=== PATIENT | female | born 1935 | race Caucasian/White ===

== ENCOUNTER → 2016-11-04 | Outpatient (CLI) | payer MEDICARE ==
[2016-11-05 12:12] LABS: CHOLESTEROL 173.99 mg/dL (0-200); Direct HDL 44 mg/dL (>40); TRIGLYCERIDES 151 mg/dL (<150)
[2016-11-05 12:23] LABS: DIRECT LDL 96 mg/dL (<100)
[2016-11-05 12:26] LABS: VLDL CHOLESTEROL 30.2 mg/dL (10-31)
== END ==
LOC: OD 12:59
PROVIDERS: ATTEND Internal Medicine
DX: E78.5 Hyperlipidemia, unspecified (principal); E53.8 Deficiency of other specified B group vitamins; D51.1 Vitamin B12 deficiency anemia due to selective vitamin B12 malabsorption with proteinuria; E60 Dietary zinc deficiency
CPT/HCPCS: 36415; 80061

== ENCOUNTER → 2016-11-05 | Outpatient (CLI) | payer MEDICARE ==
[2016-11-05 15:17] LABS: IRON 110.2 ug/dL (37-170)
== END ==
LOC: OD 14:00
PROVIDERS: ATTEND Specialist
DX: D51.1 Vitamin B12 deficiency anemia due to selective vitamin B12 malabsorption with proteinuria (principal); E60 Dietary zinc deficiency
CPT/HCPCS: 36415; 82607; 83540; 84630

== ENCOUNTER → 2016-11-27 | Outpatient (CLI) | payer MEDICARE | LOC: OD 14:55 | PROVIDERS: ATTEND Family Medicine Geriatric Medicine | DX: M25.551 Pain in right hip (principal); M19.90 Unspecified osteoarthritis, unspecified site ==

== ENCOUNTER → 2016-12-05 | Outpatient (CLI) | payer MEDICARE | LOC: RAD 10:23 → ER 10:23 → EDSTATUS 10:43 | PROVIDERS: ATTEND Pathology Anatomic Pathology & Clinical Pathology | DX: J40 Bronchitis, not specified as acute or chronic (principal); R05 Cough | CPT/HCPCS: 70220; 71020 ==

== ENCOUNTER → 2016-12-23 | Outpatient (CLI) | payer MEDICARE | LOC: OD 12:39 | PROVIDERS: ATTEND Family Medicine Geriatric Medicine | DX: M54.2 Cervicalgia (principal); M43.02 Spondylolysis, cervical region | CPT/HCPCS: 72050 ==

== ENCOUNTER → 2016-12-26 | Outpatient (CLI) | payer MEDICARE ==
[2016-12-26 09:40] LABS: ABSOLUTE EOSINOPHILS # (AUTO) 0.2 10^3/uL (0.0-0.6); ABSOLUTE LYMPHOCYTES (AUTO) 1.1 10^3/uL (0.5-4.7); ABSOLUTE MONOCYTES (AUTO) 0.3 10^3/uL (0.1-1.4); ABSOLUTE NEUT (AUTO) 1.8 10^3/uL (1.7-8.2); HEMATOCRIT 40.2 % (36.0-47.0); HEMOGLOBIN 13.5 g/dL (12.0-15.5); HGB HCT DIFFERENCE 0.3; MEAN CORPUSCULAR HEMOGLOBIN 31.9 pg (27.0-33.4); MEAN CORPUSCULAR HGB CONC 33.5 g/dL (32.0-36.0); MEAN CORPUSCULAR VOLUME 95 fl (80-97); MONOCYTES % (AUTO) 8.8 % (3-13); RED BLOOD COUNT 4.23 10^6/uL (3.72-5.28); RED CELL DISTRIBUTION WIDTH 14.8 % (11.5-14.0); SEGMENTED NEUTROPHILS % (AUTO) 53.2 % (42-78); WHITE BLOOD COUNT 3.4 10^3/uL (4.0-10.5)
[2016-12-26 10:05] LABS: ALANINE AMINOTRANSFERASE 40 U/L (9-52); ALKALINE PHOSPHATASE 73 U/L (38-126); ANION GAP 10 (5-19); ASPARTATE AMINO TRANSFERASE 33 U/L (14-36); BILIRUBIN,DIRECT 0.2 mg/dL (0.0-0.4); BILIRUBIN,TOTAL 0.6 mg/dL (0.2-1.3); BLOOD UREA NITROGEN 12 mg/dL (7-20); CALCIUM 10.4 mg/dL (8.4-10.2); CARBON DIOXIDE 28 mmol/L (22-30); CHLORIDE 105 mmol/L (98-107); CREATININE RESULT 0.86 mg/dL (0.52-1.25); GLUCOSE 102 mg/dL (75-110); MAGNESIUM 1.8 mg/dL (1.6-2.3); POTASSIUM 4.3 mmol/L (3.6-5.0); TOTAL PROTEIN 6.6 g/dL (6.3-8.2)
[2016-12-26 10:41] LABS: ANISOCYTOSIS SLIGHT; POIKILOCYTOSIS SLIGHT
[2016-12-26 10:42] LABS: PLATELET CLUMPS PRESENT
== END ==
LOC: OD 08:15
PROVIDERS: ATTEND Family Medicine Geriatric Medicine
DX: I10 Essential (primary) hypertension (principal); E78.5 Hyperlipidemia, unspecified; I25.10 Atherosclerotic heart disease of native coronary artery without angina pectoris; M25.551 Pain in right hip; Z79.899 Other long term (current) drug therapy
CPT/HCPCS: 36415; 80053; 83735; 84443; 85025

== ENCOUNTER → 2017-03-13 | Outpatient (CLI) | payer MEDICARE ==
--- NOTE | 2017-03-13 18:06 | RADIOLOGY REPORT (SQ) ---
EXAM DESCRIPTION: CT LT UPPER EXTREMITY WITHOUT COMPLETED DATE/TIME: 03/13/2017 1:22 pm REASON FOR STUDY: OTHER SPECIFIED INJURIES OF L WRIST, HAND AND FINGERS S69.82XA OTH INJURIES OF LE FT WRIST, HAND AND FINGER(S), INI COMPARISON: None. TECHNIQUE: Axial imaging performed through the left wrist with reformatted oblique coronal and obliq ue sagittal imaging windowed for bone and soft tissues. All CT scanners at this facility use dose modulation, iterative reconstruction, and/or weight based d osing when appropriate to reduce radiation dose to as low as reasonably achievable (ALARA). [facility]: Dose Right [facility]: CareDose [facility]: Dose Right [facility]: Teradose 4D [facility]: Smart [employer] RADIATION DOSE: Up-to-date CT equipment and radiation dose reduction techniques were employed. CTDIv ol: 32.2 mGy. DLP: 728 mGy-cm. mGy. LIMITATIONS: The patient was unable to lay on her belly or her side for the imaging. The left wrist was placed on the patient belly, and scanning in this position was performed. Aluminu m splint was still present. This along with patient's body habitus and beam scatter cause significan t artifact on the images. Fine bony detail to exclude carpal bone fracture is lost. FINDINGS: Nondiagnostic study for fracture. Patient's body habitus, inability to cooperate with pos itioning with her arm over her head. Patient was scanned with air left wrist over her belly. Due to a combination of body habitus, beam scatter, and aluminum splint, we were unable to obtain diagnosti c quality images of the left wrist to evaluate for fracture. IMPRESSION: Nondiagnostic study COMMENT: This report was called to Dr. Esteban, 1600 hours 03/13/2017 TECHNICAL DOCUMENTATION: JOB ID: [id number] Quality ID # [id number]: Final reports with documentation of one or more dose reduction techniques (e.g., Au tomated exposure control, adjustment of the mA and/or kV according to patient size, use of iterative reconstruction technique) 2010 [employer]- All Rights Reserved
== END ==
LOC: RAD 13:01
PROVIDERS: ATTEND Family Medicine
DX: S69.82XA Other specified injuries of left wrist, hand and finger(s), initial encounter (principal); X58.XXXA Exposure to other specified factors, initial encounter; Y93.9 Activity, unspecified; Y92.9 Unspecified place or not applicable

== ENCOUNTER → 2017-03-27 | Outpatient (CLI) | payer MEDICARE ==
--- NOTE | 2017-03-28 08:58 | RADIOLOGY REPORT (SQ) ---
EXAM DESCRIPTION: NM 3 PHASE BONE SCAN COMPLETED DATE/TIME: 03/27/2017 3:51 pm REASON FOR STUDY: OTHER SPECIFIED INJURIES OF UNSPEC WRIST, HAND AND FINGERS (S69.80XA) M54.12 RADI CULOPATHY, CERVICAL REGION COMPARISON: Outside plain films of the left hand. RADIONUCLIDE AND DOSE: 21.7 millicuries Tc99m MDP. The route of agent administration: Intravenous. ADDITIONAL DRUGS AND DOSES: None. TECHNIQUE: Following injection of the radiopharmaceutical, serial blood flow images acquired. Equil ibrium blood pool images then acquired. Routine delayed images at 3 hours acquired of the areas of c linical concern with additional focused images as needed. AREA OF INTEREST: Left hand LIMITATIONS: None. FINDINGS: VASCULAR FLOW IMAGES: No asymmetry or focal areas of hyperemia. BLOOD POOL IMAGES: No asymmetry or focal areas of soft-tissue hyper-perfusion. BONES: There is focal increased activity at the level of the 1st MCP joint, the DIP joint of the 2nd digit KIDNEYS: And at the level of the carpal bones medially which correlate with degenerative changes on t he basis of the plain films. There is similar increase tracer activity at the level of the 1st MCP j oint of the right hand. No other significant skeletal abnormalities were identified. OTHER: No other significant finding. IMPRESSION: Findings consistent with degenerative changes as noted above. No other significant bony abnormalities were identified. COMMENT: RS [id number]: Current bone scan is compared with any available plain radiographs, prior bone scans, and CT/MRI. TECHNICAL DOCUMENTATION: JOB ID: [id number] [employer]- All Rights Reserved
== END ==
LOC: RAD 11:12
PROVIDERS: ATTEND Family Medicine
DX: S69.92XA Unspecified injury of left wrist, hand and finger(s), initial encounter (principal); X58.XXXA Exposure to other specified factors, initial encounter; M19.042 Primary osteoarthritis, left hand
CPT/HCPCS: 78315; A9561; Q9969

== ENCOUNTER → 2017-05-28 | Outpatient (CLI) | payer MEDICARE ==
[2017-05-28 09:03] LABS: ALANINE AMINOTRANSFERASE 32 U/L (9-52); ANION GAP 12 (5-19); ASPARTATE AMINO TRANSFERASE 27 U/L (14-36); BLOOD UREA NITROGEN 11 mg/dL (7-20); CALCIUM 10.6 mg/dL (8.4-10.2); CARBON DIOXIDE 27 mmol/L (22-30); CHLORIDE 104 mmol/L (98-107); CHOLESTEROL 196.96 mg/dL (0-200); CREATININE RESULT 0.89 mg/dL (0.52-1.25); Direct HDL 61 mg/dL (>40); GLUCOSE 96 mg/dL (75-110); POTASSIUM 4.4 mmol/L (3.6-5.0); SODIUM 142.7 mmol/L (137-145); TRIGLYCERIDES 125 mg/dL (<150)
[2017-05-28 09:13] LABS: DIRECT LDL 107 mg/dL (<100)
== END ==
LOC: OD 07:50
PROVIDERS: ATTEND Family Medicine Geriatric Medicine
DX: I10 Essential (primary) hypertension (principal); Z79.899 Other long term (current) drug therapy; E83.52 Hypercalcemia; E03.9 Hypothyroidism, unspecified; M47.12 Other spondylosis with myelopathy, cervical region
CPT/HCPCS: 36415; 80048; 80061; 82607; 83970; 84443; 84450; 84460

== ENCOUNTER → 2018-04-06 | Outpatient (CLI) | payer MEDICARE ==
--- NOTE | 2018-04-06 10:20 | RADIOLOGY REPORT (SQ) ---
EXAM DESCRIPTION: CT HEAD WITHOUT COMPLETED DATE/TIME: 04/06/2018 9:47 am REASON FOR STUDY: HALLUCINATION, UNSPECIFIED R44.3 HALLUCINATIONS, UNSPECIFIED F03.90 UNSPECIFIED DEMENTIA WITHOUT BEHAVIORAL DISTURBANCE COMPARISON: None. TECHNIQUE: Axial images acquired through the brain without intravenous contrast. Images reviewed wi th bone, brain and subdural windows. Additional sagittal and coronal reconstructions were generated. Images stored on PACS. All CT scanners at this facility use dose modulation, iterative reconstruction, and/or weight based d osing when appropriate to reduce radiation dose to as low as reasonably achievable (ALARA). [facility]: Dose Right [facility]: CareDose [facility]: Dose Right [facility]: Teradose 4D [facility]: [employer] RADIATION DOSE: CT Rad equipment meets quality standard of care and radiation dose reduction techniq ues were employed. CTDIvol: 48.6 mGy. DLP: 929 mGy-cm.mGy. LIMITATIONS: None. FINDINGS: VENTRICLES: Prominent. CEREBRUM: No masses. No hemorrhage. No midline shift. Areas of low density in the white matter mos t likely due to chronic micro-vascular ischemic change. No evidence for acute infarction. CEREBELLUM: No masses. No hemorrhage. No alteration of density. No evidence for acute infarction. EXTRAAXIAL SPACES: Age-related involutional change. No fluid collections. No masses. ORBITS AND GLOBE: No intra- or extraconal masses. Normal contour of globe without masses. CALVARIUM: No fracture. PARANASAL SINUSES: No fluid or mucosal thickening. SOFT TISSUES: No mass or hematoma. OTHER: No other significant finding. IMPRESSION: CHRONIC CHANGES OF ATROPHY AND MICROVASCULAR ISCHEMIA. NO ACUTE PROCESS. EVIDENCE OF ACUTE STROKE: NO. TECHNICAL DOCUMENTATION: JOB ID: [id number] Quality ID # [id number]: Final reports with documentation of one or more dose reduction techniques (e.g., Au tomated exposure control, adjustment of the mA and/or kV according to patient size, use of iterative reconstruction technique) 2010 [employer]- All Rights Reserved Reading location - IP/workstation name: AC
== END ==
LOC: RAD 09:28
PROVIDERS: ATTEND Family Medicine
DX: R44.3 Hallucinations, unspecified (principal); F03.90 Unspecified dementia, unspecified severity, without behavioral disturbance, psychotic disturbance, mood disturbance, and anxiety; I67.82 Cerebral ischemia; G31.9 Degenerative disease of nervous system, unspecified
CPT/HCPCS: 70450

== ENCOUNTER 2018-10-11 10:38 | Emergency (ER) | payer MEDICARE ==
--- NOTE | 2018-10-11 11:12 | ER Document Report ---
ED Medical Screen (RME) - General Chief Complaint: Psych Problem Stated Complaint: BACK PAIN Time Seen by Provider: 10/11/18 11:09 Primary Care Provider: NORAH JOHNSON MD [Primary Care Provider] - Follow up as needed TRAVEL OUTSIDE OF THE [place] IN LAST 30 DAYS: No - HPI Notes: 10/11/18 11:[address] Johnson cardiac Dr. Johnson coming in for increase auditory hallucinations and confusion increased back pain no fevers concern for urinary tract infection. - Related Data Allergies/Adverse Reactions: clopidogrel bisulfate [From Plavix] Allergy (Severe, Verified 10/11/18 10:46) Liver damage fluvastatin sodium [From Lescol XL] Allergy (Severe, Verified 10/11/18 10:46) Penicillins Allergy (Mild, Verified 10/11/18 10:46) Generalized rash propoxyphene HCl [From Darvon] Allergy (Mild, Verified 10/11/18 10:46) Past Medical History - Past Medical History Cardiac Medical History: Reports: Hx Coronary Artery Disease, Hx Heart Attack, Hx Hypertension Pulmonary Medical History: Reports: Hx COPD Denies: Hx Asthma, Hx Bronchitis, Hx Pneumonia Neurological Medical History: Denies: Hx Cerebrovascular Accident, Hx Seizures Musculoskeltal Medical History: Reports Hx Arthritis Past Surgical History: Reports: Hx Hysterectomy, Hx Pacemaker - Immunizations Hx Diphtheria, Pertussis, Tetanus Vaccination: Yes Physical Exam - Vital signs Vitals: Temp Pulse Resp BP 97.4 F 63 17 132/66 H 10/11/18 10:47 10/11/18 10:47 10/11/18 10:47 10/11/18 10:47 - Respiratory Respiratory status: No respiratory distress Chest status: Nontender Breath sounds: Normal Chest palpation: Normal Course - Vital Signs Vital signs: Temp Pulse Resp BP Pulse Ox 97.4 F 63 17 132/66 H 10/11/18 10:47 10/11/18 10:47 10/11/18 10:47 10/11/18 10:47 Doctor's Discharge - Discharge Referrals: NORAH JOHNSON MD [Primary Care Provider] - Follow up as needed
--- NOTE | 2018-10-11 11:54 | ER Document Report ---
ED General - General Chief Complaint: Psych Problem Stated Complaint: BACK PAIN Time Seen by Provider: 10/11/18 11:09 Primary Care Provider: NORAH JOHNSON MD [Primary Care Provider] - Follow up in 3-5 days TRAVEL OUTSIDE OF THE [place] IN LAST 30 DAYS: No - HPI Notes: Patient is an 83-year-old female with a history of depression, hypertension, paroxysmal atrial fibrillation (on Eliquis), pacemaker who presents to the emergency department with daughter complaining of visual and auditory hallucinations as well as increased urinary frequency. Daughter states that she has had some visual and auditory hallucinations since her a year and a half ago. She is being seen by [facility] and on welbutrin/seroquel. She does not have any SI/HI. Daughter states that this is the first time that she is actually started listening to the voice in her head and started doing what they asked of her. Patient states that a voice has been causing her this morning to collect her things, go outside, walking on the road as an example. She also states that another voice told her that people on motorcycles in groups of 3 were going to shoot her and very her body so that it cannot be found. Daughter states that she is also had some flights of thought, but normally will continuously talk to someone is willing to listen. That behavior is relatively normal otherwise. She is still eating and drinking without difficulty. She is having normal bowel movements, but states that she may be constipated. No other concerns or complaints. Her clinic wanted her evaluated for possible UTI. Daughter states that she has had work-ups in the past with unremarkable blood work and CT. Pt has had back pain that has already been eval'd by her PCM. Denies any headache, fever, head injury, neck pain, changes in vision/speech/hearing, URI, sore throat, chest pain, palpitations, syncope, cough, shortness of breath, wheeze, dyspnea, nausea/vomiting/diarrhea, loss of control of bowel or bladder, numbness/tingling, saddle anesthesia, muscle paralysis/weakness, or rash. - Related Data Allergies/Adverse Reactions: clopidogrel bisulfate [From Plavix] Allergy (Severe, Verified 10/11/18 10:46) Liver damage fluvastatin sodium [From Lescol XL] Allergy (Severe, Verified 10/11/18 10:46) Penicillins Allergy (Mild, Verified 10/11/18 10:46) Generalized rash propoxyphene HCl [From Darvon] Allergy (Mild, Verified 10/11/18 10:46) Past Medical History - Social History Smoking Status: Never Smoker Family History: Reviewed & Not Pertinent Patient has suicidal ideation: No Patient has homicidal ideation: No - Past Medical History Cardiac Medical History: Reports: Hx Coronary Artery Disease, Hx Heart Attack, Hx Hypertension Pulmonary Medical History: Reports: Hx COPD Denies: Hx Asthma, Hx Bronchitis, Hx Pneumonia Neurological Medical History: Denies: Hx Cerebrovascular Accident, Hx Seizures Renal/ Medical History: Denies: Hx Peritoneal Dialysis Musculoskeletal Medical History: Reports Hx Arthritis Past Surgical History: Reports: Hx Hysterectomy, Hx Pacemaker - Immunizations Hx Diphtheria, Pertussis, Tetanus Vaccination: Yes Hx Pneumococcal Vaccination: 06/08/10 Review of Systems - Review of Systems -: Yes All other systems reviewed and negative Physical Exam - Vital signs Vitals: Temp Pulse Resp BP 97.4 F 63 17 132/66 H 10/11/18 10:47 10/11/18 10:47 10/11/18 10:47 10/11/18 10:47 - Notes Notes: PHYSICAL EXAMINATION: GENERAL: Well-appearing, well-nourished and in no acute distress. A&Ox3. Answers questions appropriately. Will talk non-stop until interrupted with some flights of thought that not even her daughters know what she is talking about. HEAD: Atraumatic, normocephalic. EYES: Pupils equal round and reactive to light, extraocular movements intact, sclera anicteric, conjunctiva are normal. ENT: EAC clear b/l. TM's intact b/l without erythema, fluid, or perforation. Nares patent and without discharge. oropharynx clear without exudates. No tonsilar hypertrophy or erythema. Moist mucous membranes. No sinus tenderness. NECK: Normal range of motion, supple without lymphadenopathy LUNGS: Breath sounds clear to auscultation bilaterally and equal. No wheezes rales or rhonchi. HEART: Regular rate and rhythm without murmurs, rubs, gallops. ABDOMEN: Soft, nontender, nondistended abdomen. No guarding, no rebound. No masses appreciated. Normal bowel sounds present. No CVA tenderness bilaterally. Musculoskeletal: FROM to passive/active. Strength 5+/5. Back: no vertebral point tenderness. + mild tenderness rt L-paraspinal mm. SLR neg. No foot drop. Extremities: No cyanosis, clubbing, or edema b/l. Peripheral pulses 2+. Capillary refill less than 3 seconds. NEUROLOGICAL: Cranial nerves grossly intact. NIH 0. Normal speech, normal gait. Normal sensory, motor exams PSYCH: talkative, flights of thought at times SKIN: Warm, Dry, normal turgor, no rashes or lesions noted. Course - Re-evaluation Re-evalutation: 10/11/18 11:54 We will check basic labs and a urine. We will have her eval'd by our Psychology team. This appears to be acute on chronic hallucinations w/o SI/HI. 10/11/18 15:04 Patient is an afebrile, well-hydrated, 83-year-old female who presents the emergency department with what appears to be dementia related symptoms. Patient has had ongoing visual and auditory hallucinations over the last couple years. Vitals are acceptable without significant tachycardia, tachypnea, or hypoxia. PE is otherwise unremarkable. Lab work including urinalysis was unremarkable for any acute pathology. Our psychology team has made recommendations on medication changes which the family will be trying. No further labs or imaging warranted at this time. Patient is nontoxic-appearing and is tolerating p.o. without difficulty. Home safety precautions have been reviewed. Low suspicion for any acute intracranial pathology, sepsis, meningitis, severe dehydration, respiratory compromise, or other systemic emergent condition at this time. Daughter and patient aware that condition can change from initial presentation and they need to monitor symptoms closely and seek medical attention with any acute changes. Recheck with your PCM in 3-5 days. Schedule appointment with your psychiatrist. Return to the ED with any other worsening/concerning symptoms as reviewed. Patient and family in agreement. - Vital Signs Vital signs: Temp Pulse Resp BP Pulse Ox 97.4 F 63 17 132/66 H 10/11/18 10:47 10/11/18 10:47 10/11/18 10:47 10/11/18 10:47 - Laboratory Result Diagrams: 10/11/18 12:05 10/11/18 12:05 Laboratory results interpreted by me: 10/11/18 10/11/18 12:05 12:05 RDW 14.7 H Glucose 112 H Calcium 10.4 H Salicylates < 1.0 L Acetaminophen < 10 L Discharge - Discharge Clinical Impression: Hallucinations Unspecified dementia without behavioral disturbance Qualifiers: Dementia type: unspecified type Qualified Code(s): F03.90 - Unspecified dementia without behavioral disturbance Condition: Stable Disposition: HOME, SELF-CARE Additional Instructions: Maintain adequate fluid and food intake Take home medications as directed Healthy diet Monitor blood pressure daily and keep a log Monitor symptoms for any acute changes Recheck with your PCM in 3-5 days Consider a follow-up with neurology Return to the ED with any worsening symptoms and/or development of fever, headache, chest pain, palpitations, syncope, shortness of breath, trouble breathing, abdominal pain, n/v/d, blood in stool/urine, loss of control of bowel/bladder, urinary retention, muscle weakness/paralysis, numbness/tingling, or other worsening symptoms that are concerning to you. Medication recommendations per [facility]'s contracted psychiatrist Dr. Sun OTOOLE are as follows Please discontinue home medications of Seroquel and Zoloft please start Depakote 250 mg twice daily BuSpar 5 mg twice daily Prescriptions: Buspirone HCl [Buspar 5 mg Tablet] 1 tab PO BID #14 tab Divalproex Sodium [Depakote] 250 mg PO BID #14 tablet.dr Forms: Elevated Blood Pressure Referrals: NORAH JOHNSON MD [Primary Care Provider] - Follow up in 3-5 days
[2018-10-11 12:03] LABS: APPEARANCE,URINE CLEAR; BILIRUBIN,URINE NEGATIVE (NEGATIVE); COLOR,URINE YELLOW; GLUCOSE, URINE NEGATIVE (NEGATIVE); KETONES,URINE NEGATIVE (NEGATIVE); LEUKOCYTE ESTERASE,URINE NEGATIVE (NEGATIVE); NITRITE,URINE NEGATIVE (NEGATIVE); PROTEIN,URINE NEGATIVE (NEGATIVE); URINE SPECIFIC GRAVITY 1.006; UROBILINOGEN,URINE NEGATIVE mg/dL (<2.0)
[2018-10-11 12:14] LABS: URINE AMPHETAMINES SCREEN NEGATIVE; URINE BARBITURATES SCREEN NEGATIVE; URINE BENZODIAZEPINES SCREEN NEGATIVE; URINE COCAINE SCREEN NEGATIVE; URINE MARIJUANA (THC) SCREEN NEGATIVE; URINE METHADONE SCREEN NEGATIVE; URINE PHENCYCLIDINE SCREEN NEGATIVE
[2018-10-11 12:22] LABS: ABSOLUTE EOSINOPHILS # (AUTO) 0.1 10^3/uL (0.0-0.6); ABSOLUTE MONOCYTES (AUTO) 0.4 10^3/uL (0.1-1.4); ABSOLUTE NEUT (AUTO) 3.2 10^3/uL (1.7-8.2); BASOPHILS % (AUTO) 0.5 % (0-2); EOSINOPHILS % (AUTO) 1.2 % (0-6); HEMATOCRIT 41.1 % (36.0-47.0); HEMOGLOBIN 14.1 g/dL (12.0-15.5); LYMPHOCYTES % (AUTO) 20.9 % (13-45); MEAN CORPUSCULAR HEMOGLOBIN 31.8 pg (27.0-33.4); MEAN CORPUSCULAR HGB CONC 34.2 g/dL (32.0-36.0); MEAN CORPUSCULAR VOLUME 93 fl (80-97); MONOCYTES % (AUTO) 8.1 % (3-13); PLATELET COUNT 173 10^3/uL (150-450); RED BLOOD COUNT 4.42 10^6/uL (3.72-5.28); RED CELL DISTRIBUTION WIDTH 14.7 % (11.5-14.0); SEGMENTED NEUTROPHILS % (AUTO) 69.3 % (42-78); TOTAL CELLS COUNTED % (AUTO) 100 %; WHITE BLOOD COUNT 4.6 10^3/uL (4.0-10.5)
[2018-10-11 12:46] LABS: ALANINE AMINOTRANSFERASE 33 U/L (9-52); ALBUMIN 4.3 g/dL (3.5-5.0); ALKALINE PHOSPHATASE 87 U/L (38-126); ANION GAP 9 (5-19); ASPARTATE AMINO TRANSFERASE 27 U/L (14-36); BILIRUBIN,DIRECT 0.2 mg/dL (0.0-0.4); BILIRUBIN,TOTAL 0.4 mg/dL (0.2-1.3); BLOOD UREA NITROGEN 9 mg/dL (7-20); CALCIUM 10.4 mg/dL (8.4-10.2); CARBON DIOXIDE 26 mmol/L (22-30); CHLORIDE 105 mmol/L (98-107); GLUCOSE 112 mg/dL (75-110); POTASSIUM 4.1 mmol/L (3.6-5.0); SODIUM 139.6 mmol/L (137-145); TOTAL PROTEIN 6.7 g/dL (6.3-8.2)
[2018-10-11 12:48] LABS: ACETAMINOPHEN < 10 ug/mL (10-30); ALCOHOL < 10 mg/dL (NONE DETECTED); SALICYLATE < 1.0 mg/dL (2.0-20.0)
[2018-10-11 13:44] LABS: FREE T3 3.27 pg/mL (2.77-5.27); FREE T4 (FREE THYROXINE) 1.76 ng/dL (0.78-2.19)
[2018-10-11 13:58] LABS: THYROID STIMULATING HORMONE 0.98 uIU/mL (0.47-4.68)
--- NOTE | 2018-10-11 14:00 | PSYCHOLOGICAL NOTE ---
Psych Note - Psych Note Date seen by psych provider: 10/11/18 Time seen by psych provider: 12:28 Psych Note: Reason for Consult: hallucinations Patient's family (son, daughter in law, and granddaughter whom has POA) are a bedside per patient's request Patient is an 83-year-old female with a history of depression, hypertension, paroxysmal atrial fibrillation (on Eliquis), pacemaker who presents to the emergency department with daughter complaining of visual and auditory hallucinations as well as increased urinary frequency. Patient is alert and orientated to person, place, time and circumstance. Mood is euthymic with congruent affect. Patient denies suicidal homicidal ideations. Patient discloses having episodes of both visual and auditory hallucinations. Delusions are absent behaviors congruent with an intact reality based presentation i.e. organized and linear thought process. Eye contact is well- maintained. Conversational speech is loud as patient has hearing loss. Intellectual abilities appear to be within the average range. Attention and concentration are poor. Insight, judgment, impulse control are poor. Review conducted: Patient's primary care provider Dr. Lindsey diagnosed patient with dementia. Patient had head CT on 08/07/2018 which indicated chronic changes of atrophy and microvascular ischemia. Medication recommendations per [facility]'s contracted psychiatrist Dr. Sun OTOOLE are as follows Please discontinue home medications of Seroquel and Zoloft please start Depakote 250 mg twice daily BuSpar 5 mg twice daily 799.59 (R41.9)unspecified neurocognitive disorder; probable Impression\plan: Patient is cleared from acute psychiatric services. Patient has formal diagnosis of dementia per history indicated in patient's chart. Medication recommendations have been provided. Clinician conducted psychoeducation with patient's family to discuss options on how to continue increasing patient's safety at home. Clinician provided resource information on support groups. Dr. Gifford was consulted and the care management this patient; attending physicians agreement with recommendations and disposition.
[2018-10-11 15:27] VITALS: BP 138/65
== END 2018-10-11 15:27 | disposition home or self-care (01) ==
LOC: ER 10:38
DX: R44.3 Hallucinations, unspecified (principal); F03.90 Unspecified dementia, unspecified severity, without behavioral disturbance, psychotic disturbance, mood disturbance, and anxiety; M54.9 Dorsalgia, unspecified; I10 Essential (primary) hypertension; I48.91 Unspecified atrial fibrillation; Z79.02 Long term (current) use of antithrombotics/antiplatelets; I25.10 Atherosclerotic heart disease of native coronary artery without angina pectoris; J44.9 Chronic obstructive pulmonary disease, unspecified; Z90.710 Acquired absence of both cervix and uterus; Z95.0 Presence of cardiac pacemaker; Z88.0 Allergy status to penicillin
CPT/HCPCS: 36415; 80053; 80307; 81001; 84439; 84443; 84481; 85025; 99285